=== PATIENT | female | born 1955 | race Caucasian/White ===

== ENCOUNTER 2022-01-13 14:29 | Outpatient (CLI) | payer BC, SELFPAY ==
--- NOTE | 2022-01-13 14:39 | CT_ITS ---
WS: [id number] CT NECK TECHNIQUE: Contrast-enhanced CT of the neck with coronal and sagittal reformatted images. CLINICAL INFORMATION: LOCALIZED SWELLING,MASS [place],NECK COMPARISON: None. DLP: 204.[address] scans at [facility] use at least one of these dose optimization techniques: automated e xposure control; mA and/or kV adjustment per patient size (includes targeted exams where dose is matc hed to clinical indication); or iterative reconstruction. FINDINGS: Parotid glands are normal in appearance. Normal submandibular glands. [place] artifact from dent al hardware degrades some images. Paranasal sinuses and mastoid air cells are well aerated. Normal pa rapharyngeal fat. No cervical lymphadenopathy. Parotid glands are normal. Normal submandibular glands. No evidence of supraglottic or glottic mass. Subglottic airway is normal. Normal thyroid gland. Lung apices are well aerated. Mild fibrosis the cayla ng apices. Moderate spondylitic changes cervical spine. CT/CT neck w con* [id number] IMPRESSION: 1. No cervical lymphadenopathy. 2. No evidence of supraglottic or glottic mass. 3. Normal salivary glands. 4. No evidence of neck mass or fluid collection. 5. Paranasal sinuses and mastoid air cells well aerated. 6. Normal posterior nasopharynx.
[2022-01-13] MEDS: iohexol 350 mg/mL 100 mL Btl IV (16:07)
[2022-01-13 16:15] LABS: Blood Urea Nitrogen 11 mg/dL (8-23); Glomerular Filtration Rate 71.5 mL/min (90-130)
== END 2022-01-13 14:30 | disposition home or self-care (01) ==
PROVIDERS: PCP Registered Nurse; Visit Provider Specialist
DX: R22.1 Localized swelling, mass and lump, neck (principal)
CPT/HCPCS: 70491; 82565; 84520